=== PATIENT | female | born 1975 | race Two or more races ===

== ENCOUNTER → 2016-12-19 | Outpatient (CLI) | payer OTHER ==
--- NOTE | 2016-12-19 10:35 | RADRPT ---
PROCEDURE: RIGHT knee x-ray CLINICAL INDICATION: PAIN TECHNIQUE: 4 views of the knee were obtained. COMPARISON: None FINDINGS: No acute fracture or dislocation is seen. There is normal mineralization. There is moderate narrowing of the medial compartment. There is no joint effusion. There is no significant soft tissue swelling. IMPRESSION: Moderate narrowing of the medial compartment. Physician Duncan Date Time Electronically viewed and signed by Geovani Foss Physician on 12/19/2016 10:34 RA/
== END | disposition home or self-care (01) ==
LOC: HKI 09:45
PROVIDERS: ATTEND Orthopaedic Surgery
DX: M25.551 Pain in right hip (principal); M25.561 Pain in right knee; M22.41 Chondromalacia patellae, right knee; M70.61 Trochanteric bursitis, right hip
CPT/HCPCS: 73564; Z7500; G0463